=== PATIENT | female | born 1985 | race Caucasian/White ===

== ENCOUNTER 2022-12-21 08:03 | Emergency (ER) | payer SELFPAY ==
[2022-12-21] MEDS ORDERED: Sodium Chloride 0.9% 10 ML Syringe FLUSH PRN (08:36)
[2022-12-21] MEDS: Ondansetron 4 MG/2 ML SDV IVPUSH ONE (08:41)
[2022-12-21] MEDS: Ketorolac 60 MG/2 ML SDV IVPUSH ONE (08:43)
[2022-12-21 08:57] VITALS: BP 156/92; PULSE 77
[2022-12-21 09:18] LABS: HEMATOCRIT 45.4 % (37.0-47.0); HEMOGLOBIN 15.5 g/dL (11.5-16.5); MEAN CORPUSCULAR HEMOGLOBIN 29.3 pg (27.0-32.0); MEAN CORPUSCULAR HGB CONC 34.1 g/dL (31.0-35.0); MEAN PLATELET VOLUME 11.4 fL (6.0-10.0); RED BLOOD CELL COUNT 5.29 M/uL (3.80-5.80); RED CELL DISTRIBUTION WIDTH 13.6 % (11.0-16.0)
[2022-12-21 09:22] LABS: A/G RATIO 0.9 (0.8-2.0); ALANINE AMINOTRANSFERASE,ALT 39 U/L (12-78); ALBUMIN 3.7 g/dL (3.4-5.0); ALKALINE PHOSPHATASE 54 U/L (46-116); ANION GAP 14.1 mmol/L (5.0-15.0); ASPARTATE AMNIOTRANSFERASE,AST 13 U/L (15-37); BILIRUBIN TOTAL 1.3 mg/dL (0.0-1.0); BLOOD UREA NITROGEN,BUN 7 mg/dL (8-26); CALCIUM 9.3 mg/dL (8.5-10.1); CARBON DIOXIDE,CO2 24.6 mmol/L (21.0-32.0); CHLORIDE,CL 105 mmol/L (98-107); CREATININE 0.78 mg/dL (0.55-1.02); ESTIMATED GFR 101 mL/min (>60); GLUCOSE RANDOM 107 mg/dL (74-100); MAGNESIUM 2.2 mg/dL (1.8-2.4); POTASSIUM,K 3.7 mmol/L (3.5-5.1); PROTEIN TOTAL,TP 7.6 g/dL (6.4-8.2); SODIUM,NA 140 mmol/L (136-145)
[2022-12-21 09:25] LABS: TROPONIN I HIGH SENSITIVITY 4.2 pg/ml (<=60.4)
[2022-12-21] MEDS ORDERED: Sodium Chloride 0.9% 50 ML IV ONE (09:28)
[2022-12-21] MEDS ORDERED: Sodium Chloride 0.9% 10 ML Syringe FLUSH ONE (09:28)
[2022-12-21] MEDS ORDERED: Iopamidol 612 MG/ML 100 ML Bottle IV SCH (09:30)
[2022-12-21] MEDS: methylPREDNISolone Sodium Succinate 125 MG/2 ML SDV IVPUSH ONE (10:35)
[2022-12-21] MEDS: GI Cocktail Oral Solution 30 ML PO ONE (12:02)
[2022-12-21] MEDS ORDERED: predniSONE 10 MG Tab ONE (12:30)
== END 2022-12-21 12:43 | disposition home or self-care (01) ==
LOC: LB.ED 08:03
DX: J98.8 Other specified respiratory disorders (principal); K11.7 Disturbances of salivary secretion; F17.210 Nicotine dependence, cigarettes, uncomplicated
CPT/HCPCS: 36415; 70491; 71045; 80053; 83690; 83735; 84484; 85027; 93005; 96374; 96375; 99284; A9270; J1885; J2405; J2930; J7512